=== PATIENT | male | born 1950 | race American Indian/Alaskan Native ===

== ENCOUNTER 2017-01-16 19:01 | Emergency (ER) | payer SELFPAY ==
[2017-01-16 19:46] VITALS: BP 119/71
--- NOTE | 2017-01-16 22:05 | Emergency Department Report ---
ED Recheck HPI - General Chief Complaint: Laceration/Recheck/Suture Stated Complaint: MENTAL HEALTH EVALUATIION Time Seen by Provider: 01/16/17 21:26 Source: patient Mode of arrival: Ambulatory Limitations: No Limitations - History of Present Illness Initial Comments: This is a 66-year-old male accompanied by a psych healthcare provider nontoxic, well nourished in appearance, no acute signs of distress presents to the ED with c/o of suture removal of right knee. Patient is non compliant and is not answering any questions. Patient is from psych in [facility]. The healthcare provider stated he is unaware of where and when the sutures has been placed. Healthcare provider denies any fever, pus, drainage, or decreased ROM. MD Complaint: wound re-check Initial Visit For: laceration Returns Today for: staple/Stitch removal Symptoms Since Prior Visit: no new symptoms Associated Symptoms: none. denies: fever ED Review of Systems ROS: Stated complaint: MENTAL HEALTH EVALUATIION Other details as noted in HPI ROS limited due to patient psych history and is uncooperative ED Past Medical Hx - Past Medical History Hx Hypertension: Yes Hx Seizures: Yes Hx Psychiatric Treatment: Yes (schizophrenia) Additional medical history: cocaine abuse,chronic hepatitis,chronic subdural hygroma,cervical stenosis,?hypothyroidism,benign prostatic hypertrophy,MRSA,Hep c - Social History Smoking Status: Unknown if ever smoked ED Physical Exam - General Limitations: No Limitations General appearance: alert, in no apparent distress - Head Head exam: Present: atraumatic, normocephalic - Eye Eye exam: Present: normal appearance - ENT ENT exam: Present: mucous membranes moist - Neck Neck exam: Present: normal inspection - Respiratory Respiratory exam: Present: normal lung sounds bilaterally. Absent: respiratory distress - Cardiovascular Cardiovascular Exam: Present: regular rate, normal rhythm. Absent: systolic murmur, diastolic murmur, rubs, gallop - GI/Abdominal GI/Abdominal exam: Present: soft, normal bowel sounds - Rectal Rectal exam: Present: deferred - Extremities Exam Extremities exam: Present: normal inspection, full ROM, normal capillary refill. Absent: joint swelling - Expanded Lower Extremity Exam Right Hip exam: Present: normal inspection, full ROM Upper Leg exam: Present: normal inspection, full ROM Knee exam: Present: normal inspection, full ROM, laceration (healed with several black sutures. No abscess, swelling, or erythema noted. No joint effusion. No joint redness. ), full knee extension. Absent: tenderness, swelling, abrasion, ecchymosis, deformity, crepidus, dislocation, erythema, effusion, pain w/ pronation/supination, posterior draw sign, pain/laxity with valgus, pain/laxity with varus Lower Leg exam: Present: normal inspection, full ROM Ankle exam: Present: normal inspection, full ROM Foot/Toe exam: Present: normal inspection, full ROM Neuro vascular tendon exam: Present: no vascular compromise Gait: Positive: observed and normal - Back Exam Back exam: Present: normal inspection - Neurological Exam Neurological exam: Present: alert, oriented X3 - Psychiatric Psychiatric exam: Present: normal affect, normal mood - Skin Skin exam: Present: warm, dry, intact, normal color. Absent: rash ED Course Vital Signs 01/16/17 01/16/17 19:43 19:58 Temperature 98.6 F 98.6 F Pulse Rate 74 Respiratory 18 18 Rate Blood Pressure 119/71 119/71 O2 Sat by Pulse 95 Oximetry ED Recheck MDM - Medical Decision Making This is a 66-year-old male that came into the emergency room for suture removal. Patient is stable and was examined by me. Patient's healthcare providers, at the bedside. The healthcare provider stated he is not sure when the sutures has been placed or how many sutures has been placed. Provider gave me information to call the charge nurse Marco A which he said he is not aware of when or how many suture has been placed. The knee does not look infected. There is no joint swelling or joint redness. Marco A stated sutures has been placed in [facility]. I called [facility] and has been transferred numerous times with no answer. I instructed and strictly stated to Marco A and the present provider that it is best for the patient to go to [facility] tomorrow and have the sutures removed there because I do not know how many sutures are there or when it was put. Marco A and the present healthcare provider agreed and stated they will have the patient go to [facility] tomorrow. Critical care attestation.: If time is entered above; I have spent that time in minutes in the direct care of this critically ill patient, excluding procedure time. ED Disposition Clinical Impression: Visit for suture removal Disposition: TO HOME OR SELFCARE Is pt being admited?: No Does the pt Need Aspirin: No Condition: Stable Additional Instructions: Please have the patient follow up with [facility] for suture removal within 24 hours. Referrals: PRIMARY CARE, [Primary Care Provider] - 3-5 Days SUKUMAR COLON MD [Staff Physician] - 3-5 Days [facility] [Outside] - 24 Hours
== END 2017-01-16 22:29 | disposition home or self-care (01) ==
LOC: ED 19:01
DX: S81.011D Laceration without foreign body, right knee, subsequent encounter (principal); F20.9 Schizophrenia, unspecified; F14.10 Cocaine abuse, uncomplicated; N40.0 Benign prostatic hyperplasia without lower urinary tract symptoms; E03.9 Hypothyroidism, unspecified; X58.XXXD Exposure to other specified factors, subsequent encounter